=== PATIENT | female | born 1990 | race Caucasian/White ===

== ENCOUNTER 2023-02-03 17:25 | Emergency (ER) | payer OTHER ==
[~2023-02-03] VITALS: Ht 162.6 cm; Wt 62.0 kg
[2023-02-03 17:36] VITALS: O2SAT 100
[2023-02-03 20:35] VITALS: BP 112/52; PULSE 89; RESP 18; TEMP 98
== END 2023-02-03 21:09 ==
LOC: ER 17:25
DX: R11.0 Nausea (principal)
CPT/HCPCS: 99284